=== PATIENT | male | born 1985 | race Caucasian/White ===

== ENCOUNTER 2017-03-28 17:00 | Inpatient (IN) | payer OTHER ==
[~2017-03-28] VITALS: Ht 177.8 cm; Wt 77.1 kg
--- NOTE | ~2017-03-28 | HP ---
Unit #: [id number] #: [id number] Patient: ELLIOTT LEE [id number] [facility] [address] [place] [address] [id number] MR#: [id number] NAME: ELLIOTT LEE ROOM: P208 Age: 31 Sex: M Admission Date: 03/28/2017 : 1985 Attending Physician: Barber Chou M.D. Admitting Physician: Barber Chou M.D. HISTORY AND PHYSICAL HISTORY OF PRESENT ILLNESS Elliott is a 31-year-old male admitted on 03/28/[address] [place] [address] for detox from alcohol and meth. PAST MEDICAL HISTORY Skull fracture times two. PAST SURGICAL HISTORY None. SOCIAL HISTORY Smokes one pack of cigarettes daily. Drinks a fifth of alcohol daily and does use meth daily. She is currently his and living at our [facility] house. ALLERGIES No known drug allergies. REVIEW OF SYSTEMS CONSTITUTIONAL: No fever or chills. HEENT: Denies any sore throat, ear pain or runny nose. CARDIOVASCULAR: Denies chest pain, irregular heart rhythm or palpitations. CHEST: Denies shortness of breath or cough. No hemoptysis. GASTROINTESTINAL: Denies nausea, vomiting, diarrhea or chronic constipation. ENDOCRINE: Denies history of increased thirst or urination. No recent significant weight loss or gain. GENITOURINARY: Denies dysuria, frequency, or hematuria. SKIN: Denies any rashes. HEMATOLOGIC: Denies history of increased bleeding or bruising. MUSCULOSKELETAL: Denies any hot, swollen joints. No generalized muscle pain. NEUROLOGIC: Denies problems with vision or speech. No frequent, severe headaches. No numbness, tingling or weakness in any extremities. Denies loss of bladder or bowel control. CURRENT MEDICATIONS None. PHYSICAL EXAMINATION GENERAL: Alert, well-nourished, in no apparent distress. VITAL SIGNS: Blood pressure 122/71, heart rate 101. Temperature 98.5. Unit #: [id number] #: [id number] Patient: ELLIOTT LEE HEIGHT: 5 feet 10. WEIGHT: 170 pounds. SKIN: Warm and dry without rash or lesion. HEENT: Normocephalic. TMs not viewed. Oral and nasal passages clear. Conjunctivae clear. Pupils equal, round and reactive to light and accommodation. Extraocular movements intact. NECK: Supple without lymphadenopathy or thyromegaly. HEART: Regular rate and rhythm without murmur. LUNGS: Clear. ABDOMEN: Soft, nontender. : Not done. EXTREMITIES: No evidence of cyanosis, clubbing or edema. Moves all extremities without focal deficit. NEUROLOGICAL: Grossly within normal limits. Cranial Nerves: II: Visual miranda are intact. III, IV AND : Extraocular movements are intact. Pupils are equal, round and reactive to light. V: Facial sensation is grossly normal. VII: Facial movements and expression are normal. VIII: Auditory acuity grossly intact. IX, X: Uvula is midline. Phonation is normal. XI: Patient shrugs shoulders and turns head normally. XII: Tongue protrudes in the midline. Sensory and Motor Function: Sensory and motor sensation is grossly normal. Motor: moves all extremities well. Coordination: Gait is normal. Deep Tendon Reflexes: Intact. IMPRESSION 1. Psychiatric admission. 2. History of skull fracture. RECOMMENDATIONS PSYCHIATRIC: Per psychiatrist. MEDICAL: I see no contraindications to participating in facility's activities. MEDICAL PROGNOSIS Good. MEDICAL CONDITION Stable. Dictated by... Carolyn Thompson/james TD: 03/30/2017 01:01 JOB #: [id number] Unit #: [id number] #: [id number] Patient: ELLIOTT LEE HISTORY AND PHYSICAL Page 1 of 1 X DAMIEN SO APRN X HISTORY AND PHYSICAL
--- NOTE | ~2017-03-28 | PA ---
Unit #: [id number] #: [id number] Patient: ELLIOTT LEE [id number] [facility] [address] [place] [address] [id number] I MR#: [id number] NAME: ELLIOTT LEE ROOM: P208 Age: 31 Sex: M Admission Date: 03/28/2017 : 1985 Date of Assessment: 03/29/2017 Attending Physician: Barber Chou M.D. Admitting Physician: Barber Chou M.D. PSYCHIATRIC ASSESSMENT INFORMANT The patient reliability, fair informant; chart reliability, good. CHIEF COMPLAINT Alcohol abuse withdrawal, anxiety. HISTORY OF PRESENT ILLNESS Elliott Lee is a 31-year-old male, who presented with the above-mentioned complaint. The patient reported history of alcohol abuse diagnosed with bipolar disorder. Currently, on no medication. The patient reported that he was recommended from the [facility]. The patient currently living there for alcohol withdrawal. The patient reported that he started drinking about 5 days ago after being clean for sober for almost 11 months. The patient reports that he has been in a long term house for approximately 30 days. The patient is upset with himself for relapsing. The patient spent most of the late teens and 20s incarcerated. The patient stated that he is very tired and experiencing headache, elevated pulse, withdrawal symptoms, scored 9 on CIWA score. The patient reported alcohol use, age of onset 12; tobacco use, age of onset 15; opioid use, age of onset 23; amphetamine use, age of onset 14; benzodiazepine, age of onset 15; methadone use, age of onset 14. The patient reported history of blackout, history of withdrawal symptom, IV drug use. No HIV or hepatitis and currently reporting headache, depressed mood, and poor appetite, needing inpatient admission at this time for psychiatric stabilization. PAST PSYCHIATRIC HISTORY Remarkable for history of previous treatment in the past, details unknown at this time. FAMILY HISTORY AND SOCIAL HISTORY The patient has a poor support system. No history of abuse. No history of legal charges in the past. Spent time incarcerated, but no current legal problem. The patient's father attempted suicide. History of substance abuse in mother, who recently. MEDICAL HISTORY Unremarkable for any chronic medical illness. Musculoskeletal; muscle strength and tone, no atrophy or abnormal movement. Gait normal. MEDICATION HISTORY None. ALLERGIES Unit #: [id number] #: [id number] Patient: ELLIOTT LEE No known drug allergies. SUBSTANCE ABUSE HISTORY None. REVIEW OF SYSTEMS HEENT: Eyes, clear. Ears, nose, mouth, and throat; clear. CARDIOVASCULAR: Unremarkable. RESPIRATORY: Unremarkable. GI: Unremarkable. : Unremarkable. SKIN: Unremarkable. LYMPH NODE: Unremarkable. NEUROLOGIC: Unremarkable. ENDOCRINE: Unremarkable. HEMATOLOGIC: Unremarkable. ALLERGIC/IMMUNOLOGIC: Unremarkable. MUSCULOSKELETAL: Muscle strength and tone, no atrophy or abnormal movement. Gait, normal. MENTAL STATUS EXAMINATION CONSTITUTIONAL: Measurement of vital signs; temperature 98.4, heart rate 124, respiratory rate 16, blood pressure 150/69. Height 5 feet 10 inches, weight 170 pounds. GENERAL APPEARANCE: The patient dressed casually. The patient did not show any facial deformity. MUSCULOSKELETAL: Please see above. PSYCHIATRIC EXAMINATION Description of speech, regular rate, normal volume, normal articulation, coherent. Description of thought process, goal directed. Description of association, intact. Description of abnormal psychotic thinking; the patient denied any hallucination or delusions, but sad, depressed, substance abuse. Description of the patient's judgment, concerning everyday activity, poor. Social situation, poor. Concerning psychiatric condition, poor. Complete mental status examination; oriented in time, place, and person. Recent and remote memory, fair. Attention span and concentration, fair. Language, able to name object and repeat phrases. Fund of knowledge, fair. Vocabulary, intact. Mood and affect, sad and dysphoric. Insight and judgment, fair to poor. ASSETS AND LIABILITIES Assets, the patient is articulate and able to take care of his ADL. Liability, history of depression, substance abuse. ADMITTING DIAGNOSES PSYCHIATRIC: Alcohol use disorder, severe, F10.20; mood disorder, not otherwise specified, F32.9; rule out major depressive disorder, recurrent, severe, F33.2. Secondary diagnosis: Deferred. Medical diagnosis: None. Stressors: Psychosocial stressors. Unit #: [id number] #: [id number] Patient: ELLIOTT LEE PSYCHIATRIC PLAN AND TREATMENT GOAL AND DISCHARGE PLAN 1. Advised to admit the patient on the inpatient unit. Provide safe, supportive, and structured environment. 2. Ordered labs; CBC, CMP, UA, and UDS. 3. Detox protocol and detox monitoring. 4. The patient to start with Celexa 20 mg at bedtime and Librium 25 mg b.i.d. We will continue to follow. If needed, consider further adjustment of medication. 5. Treatment goal; to attain euthymic mood, gain insight into his problem, and learn coping skills. DISCHARGE PLAN Plan to stabilize the patient and consider followup in outpatient program. ESTIMATED LENGTH OF STAY 3 to 5 days. Dictated by... Jak Fernandez/eros TD: 03/29/2017 11:48 JOB #: [id number] PSYCHIATRIC ASSESSMENT Page 1 of 1 X Barber Chou MD X PSYCHIATRIC ASSESSMENT
--- NOTE | ~2017-03-28 | DS ---
Unit #: [id number] #: [id number] Patient: ZAHIRA LEE [id number] [facility] [address] [place] [address] [id number] I MR#: [id number] NAME: ZAHIRA LEE ROOM: [facility] Age: 31 Sex: M Admission Date: 03/28/2017 : 1985 Discharge Date: 03/30/2017 Attending Physician: Barber Chou M.D. DISCHARGE SUMMARY REASON FOR ADMISSION Substance abuse and depression. DIAGNOSTIC STUDIES LABORATORY RESULTS: Urine drug screen positive for amphetamine. HOSPITAL COURSE The patient was admitted to inpatient unit on 03/28/2017 and discharged on 03/30/2017. The patient was treated with group therapy, individual therapy, chemical dependency group, medication management. The patient was responsive to treatment. Subsequently, the patient was discharged with a plan to follow up in outpatient program. DISCHARGE MEDICATIONS Celexa 20 mg at bedtime for depression, Vistaril 25 mg t.i.d. for anxiety, Librium 25 mg b.i.d. for 5 days for withdrawal from alcohol. DISCHARGE DIAGNOSES Psychiatric: Alcohol use disorder, severe, F10.20; mood disorder, not otherwise specified, F32.9. Secondary diagnosis: Deferred. Medical diagnosis: None. Stressors: Psychosocial stressors. DISCHARGE INSTRUCTIONS The patient to follow up in outpatient clinic as per social services counselor. CONDITION ON DISCHARGE The patient was pleasant and cooperative. Denied any psychotic symptom or any suicidal ideation. PROGNOSIS Guarded. DIET AND ACTIVITY As tolerated. Dictated by... Barber Chou M.D. Unit #: [id number] #: [id number] Patient: ZAHIRA LEE SZC/modl TD: 03/30/2017 21:04 JOB #: [id number] DISCHARGE SUMMARY Page 1 of 1 X Barber Chou MD X DISCHARGE SUMMARY
[2017-03-29 11:25] LABS: BASOPHIL% 0.3 % (0-2.5); EOSINOPHIL# 0.1 X10e3 (0-0.7); EOSINOPHIL% 1.5 % (0.0-7.0); HEMATOCRIT 49.9 % (38.0-50.0); HEMOGLOBIN 16.8 gm/dL (13.0-16.0); LYMPHOCYTE# 1.6 X10e3 (1.0-3.5); LYMPHOCYTE% 23.9 % (17.0-45.0); MEAN CELL VOLUME 88.6 FL (83-96); MEAN CORPUSCULAR HEMOGLOBIN 29.8 PG (28-34); MEAN CORPUSCULAR HGB CONC 33.6 g/dL (30-36); MEAN PLATELET VOLUME 9.1 FL (6.5-11.5); MONOCYTE# 0.6 X10e3 (0-1.0); MONOCYTE% 9.9 % (3.0-12.0); NEUTROPHIL# 4.2 X10e3 (1.5-7.1); NEUTROPHIL% 64.4 % (40-75); PLATELET COUNT 208 X10e3 (140-420); RED BLOOD COUNT 5.63 X10e (3.90-5.60); RED CELL DISTRIBUTION WIDTH 13.5 % (11.0-15.5); WHITE BLOOD COUNT 6.5 X10e3 (4.0-10.5)
[2017-03-29 11:26] LABS: DIFF IND NO
[2017-03-29 11:40] LABS: ALBUMIN SERUM 4.4 g/dL (3.5-5.0); BILIRUBIN,TOTAL 1.1 mg/dL (0.2-2.0); CALCIUM SERUM 9.7 mg/dL (8.4-10.2); GLOM FILT RATE Estimated 99.2 mL/min (>60)
[2017-03-29 11:46] LABS: URINE APPEARANCE CLOUDY; URINE BILIRUBIN NEG (NEG); URINE BLOOD 1+ (NEG); URINE COLOR DK YELLOW; URINE GLUCOSE NEG (NEG); URINE KETONE 1+ (NEG); URINE LEUKOCYTE ESTERASE 1+ (NEG); URINE NITRATE NEG (NEG); URINE PROTEIN 2+ (NEG); URINE SPECIFIC GRAVITY 1.026 (1.003-1.035)
[2017-03-29 11:48] LABS: URINE BACTERIA AUWI NEG (NEGATIVE); URINE SQUAMOUS EPITHELIAL CELL OCC /[HPF]
[2017-03-29 12:00] LABS: URINE CRYSTALS CALCIUM OXALATE /[HPF]
[2017-03-29 12:01] LABS: URINE MUCUS PRESENT
[2017-03-29 12:02] LABS: URINE SPERM PRESENT; URINE YEAST PRESENT
[2017-03-29 12:08] LABS: AMPHETAMINE POS (NEG); BARBITURATES NEG (NEG); BENZODIAZEPINES NEG (NEG); COCAINE NEG (NEG); MARIJUANA NEG (NEG); OPIATES NEG (NEG); TRICYCLIC ANTIDEPRESSANTS NEG (NEG); U METHADONE NEG (NEG)
== END 2017-03-30 09:52 | disposition home or self-care (01) | DRG 897 ==
LOC: P2S 17:08
PROVIDERS: Psychiatry & Neurology Psychiatry
PROC: HZ2ZZZZ Detoxification Services for Substance Abuse Treatment (ICD-10-PCS; principal; 2017-03-28)
DX: F10.20 Alcohol dependence, uncomplicated (principal); F39 Unspecified mood [affective] disorder; F17.210 Nicotine dependence, cigarettes, uncomplicated
CPT/HCPCS: 80053; 80307; 81003; 85025